=== PATIENT | female | born 1940 | race Caucasian/White ===

== ENCOUNTER 2016-04-09 06:47 | Inpatient (IN) | payer OTHER, BC ==
[~2016-04-09] VITALS: Ht 165.1 cm; Wt 67.0 kg
[~2016-04-09 06:47] MED LIST: AMLODIPINE BESY10 MG PO; ASCORBIC ACID500 M3 PO; ATORVASTATIN CA40 MG PO; BENADRYL25 MG PO; CALTRATE 600 +1 EAC1 PO; CENTRUM SILVER1 EAC3 PO; COD LIVER OIL1 EACH PO; COQ-10100 MG PO; CRANBERRY450 M3 PO; FLONASE16 G1 BOTH NARES; GLUCOSAMINE &1 EAC1 PO; IPRATROPIUM BRO15 ML BOTH NARES; IRON325 M1 PO; MELOXICAM15 MG PO; METOPROLOL TART50 MG PO; MIRALAX255 GM PO; TIZANIDINE HCL4 M1 PO; VITAMIN B12 100MCG PO; VITAMIN E400 UNIT PO; ZYRTEC-D1 TABLE1 PO
[2016-04-09 07:31] VITALS: BP 163/89
[2016-04-09 08:57] LABS: METH RESISTANT S AUREUS PCR NEGATIVE (NEGATIVE)
[2016-04-09 09:00] LABS: PROBE CHECK PASS; SPECIMEN PROCESSING CONTROL PASS
[2016-04-09 11:21] LABS: HEMATOCRIT 36.6 % (36.0-46.0); MCH 32.4 PG (29.0-34.0); MCHC 33.1 G/DL (30.0-36.0); MCV 97.9 FL (83-99); MEAN PLAT.VOLUME 12.3 uM^3 (9.5-12.4); PLATELET COUNT 152 K/uL (156-360); RBC DIS.WIDTH-CV 13.9 % (11.8-14.6); RBC DIS.WIDTH-SD 49.3 % (39-53); RED BLOOD COUNT 3.74 M/uL (3.80-5.20); WHITE BLOOD COUNT 8.2 K/uL (4.1-10.2)
[2016-04-09] MEDS ORDERED: LOVENOX30 MG/0.3 SC (11:24)
[2016-04-09] MEDS ORDERED: IRON325 M1 PO (11:24)
[2016-04-09 13:05] VITALS: BP 143/67
[2016-04-09 15:28] VITALS: BP 130/65
[2016-04-09 20:10] VITALS: BP 139/63
[2016-04-09 23:59] VITALS: BP 130/76
[2016-04-10 03:26] VITALS: BP 143/66
[2016-04-10 04:42] LABS: HEMATOCRIT 33.5 % (36.0-46.0); MCV 96.5 FL (83-99)
[2016-04-10 04:50] LABS: CHLORIDE 105 mEq/L (99-109); POTASSIUM 3.2 mEq/L (3.7-5.4); SODIUM 137 mEq/L (136-147)
[2016-04-10 04:52] LABS: GLUCOSE 153 mg/dL (70-99)
[2016-04-10 04:54] LABS: ANION GAP 11 MEQ/L (2-14)
[2016-04-10 04:56] LABS: GFR ESTIMATE (CALCULATED) > 59 mL/min/
[2016-04-10 04:57] LABS: UREA NITROGEN (BUN) 19 mg/dL (9-23)
[2016-04-10 08:41] VITALS: BP 152/72
[2016-04-10 11:49] VITALS: BP 132/61
[2016-04-10 15:48] VITALS: BP 134/65
[2016-04-10 20:10] VITALS: BP 148/68
[2016-04-11] VITALS: BP 126/66
[2016-04-11 06:56] LABS: HEMATOCRIT 32.3 % (36.0-46.0); MCV 94.7 FL (83-99)
[2016-04-11 07:20] LABS: ANION GAP 10 MEQ/L (2-14); CHLORIDE 103 MEQ/L (99-109); GFR ESTIMATE (CALCULATED) > 59 mL/min/; GLUCOSE 120 mg/dL (70-99); POTASSIUM 3.4 MEQ/L (3.7-5.4); SAMPLE HEMOLYSIS CHECK 0; SAMPLE ICTERIC CHECK 0; SAMPLE LIPEMIA CHECK 0; SODIUM 136 MEQ/L (136-147); UREA NITROGEN (BUN) 15 mg/dL (9-23)
[2016-04-11 08:00] VITALS: BP 145/71
[2016-04-11] MEDS ORDERED: ENDOCET 5-3251 EACH PO (08:02)
[2016-04-11] MEDS ORDERED: CELECOXIB200 MG PO (08:02)
[2016-04-11] MEDS ORDERED: LOVENOX40 MG/0.4 SC (08:02)
[2016-04-11 08:46] VITALS: BP 145/71
[2016-04-11 12:00] VITALS: BP 102/58
[2016-04-11 16:00] VITALS: BP 133/64
[2016-04-11 19:05] VITALS: BP 88/50
[2016-04-12 00:36] VITALS: BP 116/61
[2016-04-12 03:49] VITALS: BP 130/69
[2016-04-12 07:46] VITALS: BP 137/75
[2016-04-12 12:00] VITALS: BP 121/58
== END 2016-04-12 13:27 | DRG 470 ==
LOC: 2SOUTH 06:47 → 3WEST 06:47 → 2SOUTH 08:08 → 3WEST 12:56
PROVIDERS: Orthopaedic Surgery; Physician Assistant
PROC: 0SRC0J9 Replacement of Right Knee Joint with Synthetic Substitute, Cemented, Open Approach (ICD-10-PCS; principal; 2016-04-09)
DX: M17.11 Unilateral primary osteoarthritis, right knee (principal); E87.6 Hypokalemia; K21.9 Gastro-esophageal reflux disease without esophagitis; E78.5 Hyperlipidemia, unspecified; I10 Essential (primary) hypertension; M81.0 Age-related osteoporosis without current pathological fracture; J30.2 Other seasonal allergic rhinitis; Z98.1 Arthrodesis status; Z88.1 Allergy status to other antibiotic agents; Z91.040 Latex allergy status
CPT/HCPCS: 36415; 71020; 73560; 80048; 84132; 85014; 85018; 85027; 86850; 86900; 86901; 87081; 87641; J0131; J0171; J0690; J1170; J1650; J2175; J2250; J2405; J2795; J3010; J7050

== ENCOUNTER 2017-02-07 16:41 | Emergency (ER) | payer OTHER, BC ==
[~2017-02-07] VITALS: Ht 167.6 cm; Wt 98.1 kg
[~2017-02-07 16:41] MED LIST changes: +CELECOXIB200 MG PO; +ENDOCET 5-3251 EACH PO; +LOVENOX30 MG/0.3 SC; +LOVENOX40 MG/0.4 SC
[2017-02-07 17:32] LABS: EOSINOPHIL (%) 0 % (0-5); HEMATOCRIT 37.1 % (36.0-46.0); IMMATURE GRANULOCYTE (%) 0.2 % (0.0-0.7); INSTRUMENT ABS NEUTROPHIL CT 7.1 K/uL; LYMPHOCYTE COUNT 1.1 K/uL (1.0-2.8); MCH 32.5 PG (29.0-34.0); MCHC 33.7 G/DL (30.0-36.0); MCV 96.4 FL (83-99); MEAN PLAT.VOLUME 11.6 uM^3 (9.5-12.4); MONOCYTE (%) 12.6 % (3-12); MONOCYTE COUNT 1.2 K/uL (0-0.8); NEUTROPHIL (%) 75.4 % (45-76); NEUTROPHIL COUNT 7.1 K/uL (1.8-6.4); PLATELET COUNT 152 K/uL (156-360); RBC DIS.WIDTH-CV 13.7 % (11.8-14.6); RBC DIS.WIDTH-SD 48.6 % (39-53); RED BLOOD COUNT 3.85 M/uL (3.80-5.20); WHITE BLOOD COUNT 9.5 K/uL (4.1-10.2)
[2017-02-07 17:38] LABS: INTER. NORMALIZED RATIO 1.2; PROTHROMBIN TIME 13.8 SEC (10.2-12.9)
[2017-02-07 17:41] LABS: PTT 28.1 SEC (25-37)
[2017-02-07 17:42] LABS: CHLORIDE 103 mEq/L (99-109); POTASSIUM 3.2 mEq/L (3.7-5.4); SODIUM 136 mEq/L (136-147)
[2017-02-07 17:44] LABS: GLUCOSE 187 mg/dL (70-99)
[2017-02-07 17:45] LABS: ANION GAP 11 MEQ/L (2-14)
[2017-02-07 17:48] LABS: GFR ESTIMATE (CALCULATED) > 59 mL/min/
[2017-02-07 17:49] LABS: UREA NITROGEN (BUN) 15 mg/dL (9-23)
[2017-02-07] MEDS ORDERED: CLINDAMYCIN HC150 MG PO (19:16)
[2017-02-07] MEDS ORDERED: IBUPROFEN600 MG PO (19:16)
[2017-02-07] MEDS ORDERED: PERCOCET 5/31 TABLET PO (19:17)
[2017-02-07 20:18] VITALS: BP 142/81
== END 2017-02-07 20:28 | disposition home or self-care (01) ==
LOC: EME 16:41
PROVIDERS: Emergency Medicine
DX: L03.114 Cellulitis of left upper limb (principal); M19.90 Unspecified osteoarthritis, unspecified site; M25.532 Pain in left wrist; I10 Essential (primary) hypertension
CPT/HCPCS: 80048; 83605; 85025; 85610; 85730; 99281; 99285; J1885; J2270